=== PATIENT | male | born 1995 | race Two or more races ===

== ENCOUNTER 2020-09-29 20:00 | Emergency (ER) | payer SELFPAY ==
[~2020-09-29] VITALS: Ht 185.4 cm; Wt 82.7 kg
[2020-09-29 21:30] LABS: ANION GAP 10 mmol/L (8-16); CALCIUM, TOTAL 9.5 mg/dL (8.8-10.5); CARBON DIOXIDE 28 mmol/L (22-29); CHLORIDE 99 mmol/L (98-107); CREATININE 0.86 mg/dL (0.60-1.30); GLOMERULAR FILTR. RATE CALC > 60 mL/min (>60); GLUCOSE,RANDOM 130 mg/dL (70-110); HEMATOCRIT 42.9 % (41-53); HEMOGLOBIN 14.3 g/dL (13.5-17.5); MEAN CORPUSCULAR HEMOGLOBIN 29.4 pg (26.0-34.0); MEAN CORPUSCULAR HGB CONC 33.3 G/dL (31.0-37.0); MEAN CORPUSCULAR VOLUME 88 fL (80-100); PLATELET COUNT (AUTO) 324 K/uL (150-450); POTASSIUM 3.8 mmol/L (3.5-5.1); RED BLOOD CELL COUNT(AUTO) 4.86 MIL/uL (4.50-5.90); RED CELL DISTRIBUTION WIDTH 13.4 % (11.5-14.5); SODIUM SERUM 137 mmol/L (136-145); UREA NITROGEN, BLOOD 13 mg/dL (7-18)
[2020-09-29 21:36] LABS: ALANINE AMINOTRANSFERASE 52 U/L (12-78); ALBUMIN 3.6 g/dL (3.4-5.0); ALKALINE PHOSPHATASE 72 U/L (46-116); ASPARTATE AMINOTRANSFERASE 40 U/L (15-37); BILIRUBIN,TOTAL 0.4 mg/dL (0.1-1.0); LIPASE 63 U/L (73-393); TOTAL PROTEIN, SERUM 8.4 g/dL (6.4-8.2)
[2020-09-29 22:10] LABS: BAND NEUTROPHILS % (MANUAL) 0 % (0-5); LYMPHOCYTES % (MANUAL) 7 % (22-44); MONOCYTES % (MANUAL) 3 % (2-9); SEGMENTED NEUTROPHILS % 90 % (40-70)
[2020-09-29] MEDS ORDERED: PB/HYOSCY/ATR/SCOP/LIDO/MAALOX 55 ML BOTTLE PO ONE (22:45)
[2020-09-29] MEDS ORDERED: FAMOTIDINE 20 MG TABLET PO ONE (22:45)
[2020-09-29 23:25] VITALS: BP 145/89
== END 2020-09-29 23:29 | disposition home or self-care (01) ==
LOC: EMS 20:03
DX: R10.13 Epigastric pain (principal); F19.10 Other psychoactive substance abuse, uncomplicated; F17.210 Nicotine dependence, cigarettes, uncomplicated; Z88.6 Allergy status to analgesic agent
CPT/HCPCS: 99283

== ENCOUNTER 2023-06-29 10:49 | Emergency (ER) | payer OTHER ==
[~2023-06-29] VITALS: Ht 182.9 cm; Wt 81.8 kg
[2023-06-29 10:54] VITALS: BP 125/77; PULSE 88; RESP 20; TEMP 98.8
[2023-06-29 11:26] LABS: ALCOHOL, URINE DRUG SCREEN NEGATIVE (NEGATIVE); AMPHET/METH SCREEN,URINE NEGATIVE (NEGATIVE); BARBITURATE SCREEN, URINE NEGATIVE (NEGATIVE); BENZODIAZEPINES SCREEN,URINE NEGATIVE (NEGATIVE); CANNABINOID SCREEN,URINE POSITIVE (NEGATIVE); COCAINE SCREEN,URINE POSITIVE (NEGATIVE); METHADONE SCREEN, URINE NEGATIVE (NEGATIVE); OPIATE SCREEN,URINE NEGATIVE (NEGATIVE); PHENCYCLIDINE SCREEN,URINE NEGATIVE (NEGATIVE)
== END 2023-06-29 12:24 | disposition home or self-care (01) ==
LOC: EMS 10:58
DX: E86.0 Dehydration (principal); F17.210 Nicotine dependence, cigarettes, uncomplicated; F15.90 Other stimulant use, unspecified, uncomplicated; Z88.8 Allergy status to other drugs, medicaments and biological substances
CPT/HCPCS: 80307; 99283

== ENCOUNTER 2023-08-06 13:11 | Emergency (ER) | payer OTHER ==
[~2023-08-06] VITALS: Ht 184.2 cm; Wt 81.8 kg
[2023-08-06 13:16] VITALS: TEMP 97.9
[2023-08-06 13:25] VITALS: BP 117/72; PULSE 78; RESP 16
[2023-08-06] MEDS ORDERED: OFLO5DRO49 OS (15:14)
== END 2023-08-06 16:09 | disposition home or self-care (01) ==
LOC: EMS 13:12
DX: H10.32 Unspecified acute conjunctivitis, left eye (principal); Z90.49 Acquired absence of other specified parts of digestive tract; Z88.8 Allergy status to other drugs, medicaments and biological substances
CPT/HCPCS: 99283; Z7502

== ENCOUNTER 2024-05-14 00:22 | Emergency (ER) | payer OTHER ==
[~2024-05-14] VITALS: Ht 182.9 cm; Wt 81.8 kg
[~2024-05-14 00:22] MED LIST: OFLO5DRO49 OS
[2024-05-14 00:28] VITALS: BP 109/57; PULSE 98; RESP 16; TEMP 98; O2SAT 96
== END 2024-05-14 01:30 | disposition left against medical advice (07) ==
LOC: EMS 00:23
DX: F10.129 Alcohol abuse with intoxication, unspecified (principal); Z53.21 Procedure and treatment not carried out due to patient leaving prior to being seen by health care provider

== ENCOUNTER 2024-06-16 10:19 | Emergency (ER) | payer OTHER ==
[~2024-06-16] VITALS: Ht 183.5 cm; Wt 81.8 kg
[2024-06-16 11:12] LABS: APPEARANCE,URINE CLEAR (CLEAR); BILIRUBIN,URINE NEGATIVE (NEGATIVE); COLOR,URINE LIGHT YELLOW (YELLOW); GLUCOSE, URINE (UA) NEGATIVE (NEGATIVE); KETONES,URINE NEGATIVE (NEGATIVE); LEUKOCYTE ESTERASE ,URINE NEGATIVE (NEGATIVE); NITRATE,URINE NEGATIVE (NEGATIVE); OCCULT BLOOD,URINE NEGATIVE (NEGATIVE); PH,URINE 6.5 (5.0-8.0); PROTEIN,URINE NEGATIVE (NEGATIVE); SPECIFIC GRAVITIY, URINE 1.027 (1.003-1.030); UROBILINOGEN,URINE <=1.0 mg/dL (<=1.0)
[2024-06-16 12:48] LABS: BASOPHILS % (AUTO) 0.7 % (0.0-2.0); EOSINOPHILS % (AUTO) 1.6 % (1.0-6.0); HEMATOCRIT 40.9 % (41-53); HEMOGLOBIN 13.6 g/dL (13.5-17.5); LYMPHOCYTES # (AUTO) 1.5 K/uL (1.0-4.8); LYMPHOCYTES % (AUTO) 29.5 % (22.0-44.0); MEAN CORPUSCULAR HEMOGLOBIN 30.6 pg (26.0-34.0); MEAN CORPUSCULAR HGB CONC 33.3 G/dL (31.0-37.0); MEAN CORPUSCULAR VOLUME 92 fL (80-100); MONOCYTES # (AUTO) 0.5 K/uL (0.1-1.0); NEUTROPHILS % (AUTO) 59.2 % (40.0-70.0); PLATELET COUNT (AUTO) 228 K/uL (150-450); RED BLOOD CELL COUNT(AUTO) 4.46 MIL/uL (4.50-5.90); RED CELL DISTRIBUTION WIDTH 13.4 % (11.5-14.5); WHITE BLOOD COUNT (AUTO) 5.2 K/uL (4.5-11.0)
[2024-06-16 13:08] LABS: ANION GAP 8 mmol/L (8-16); CALCIUM, TOTAL 8.2 mg/dL (8.8-10.5); CARBON DIOXIDE 28 mmol/L (22-29); CHLORIDE 103 mmol/L (98-107); CREATININE 0.81 mg/dL (0.60-1.30); GLOMERULAR FILTR. RATE CALC > 60 mL/min (>60); GLUCOSE,RANDOM 90 mg/dL (70-110); POTASSIUM 3.5 mmol/L (3.5-5.1); SODIUM SERUM 139 mmol/L (136-145); UREA NITROGEN, BLOOD 15 mg/dL (7-18)
[2024-06-16 13:11] LABS: ALANINE AMINOTRANSFERASE 21 U/L (12-78); ALBUMIN 3.5 g/dL (3.4-5.0); ALKALINE PHOSPHATASE 49 U/L (46-116); ASPARTATE AMINOTRANSFERASE 23 U/L (15-37); BILIRUBIN,TOTAL 0.3 mg/dL (0.1-1.0); TOTAL PROTEIN, SERUM 6.9 g/dL (6.4-8.2)
[2024-06-16 13:29] VITALS: TEMP 97.8
[2024-06-16 13:30] VITALS: BP 130/80; PULSE 70; RESP 16; O2SAT 97
[2024-06-16] MEDS: CefTRIAXone SODIUM 1 GM/VIAL IM ONE (13:37)
[2024-06-16] MEDS: LIDOCAINE/PF 1% 2 ML VIAL IM ONE (13:37)
[2024-06-16] MEDS: AZITHROMYCIN 500 MG TABLET PO ONE (13:37)
== END 2024-06-16 13:50 | disposition home or self-care (01) ==
LOC: EMS 10:29
DX: N34.2 Other urethritis (principal); F12.90 Cannabis use, unspecified, uncomplicated; Z90.49 Acquired absence of other specified parts of digestive tract
CPT/HCPCS: 99285; 74176; 80053; 81003; 85025; 36415; 87491; 87591; 96372; J0456; J0696; J3490

== ENCOUNTER 2024-10-14 22:59 | Emergency (ER) | payer OTHER ==
[~2024-10-14] VITALS: Ht 182.9 cm; Wt 82.7 kg
[2024-10-14 23:15] VITALS: BP 124/67; PULSE 85; RESP 16; TEMP 97.8; O2SAT 98
[2024-10-14] MEDS ORDERED: AMOX-457 PO (23:20)
[2024-10-15] MEDS: CEPHALEXIN MONOHYDRATE 500 MG CAPSULE PO ONE (00:31)
[2024-10-15] MEDS: SULFAMETHOX/TRIMETH DS 800-160 MG/TABLET PO ONE (00:32)
[2024-10-15] MEDS ORDERED: SULF-261 PO (01:17)
[2024-10-15] MEDS ORDERED: CEPH-558 PO (01:17)
== END 2024-10-15 00:42 | disposition home or self-care (01) ==
LOC: EMS 22:59
DX: L03.115 Cellulitis of right lower limb (principal); F12.90 Cannabis use, unspecified, uncomplicated; Z90.49 Acquired absence of other specified parts of digestive tract
CPT/HCPCS: 99284; Z7502; Z7610

== ENCOUNTER 2024-12-04 18:04 | Emergency (ER) | payer OTHER ==
[~2024-12-04] VITALS: Ht 182.9 cm; Wt 81.0 kg
[~2024-12-04 18:04] MED LIST changes: +AMOX-457 PO; +CEPH-558 PO; -OFLO5DRO49 OS; +SULF-261 PO
[2024-12-04 18:40] VITALS: BP 111/78; PULSE 73; RESP 18; TEMP 97.9; O2SAT 99
[2024-12-04 19:26] LABS: GLUCOMETER DEV NAME(LOC) ERT.6; GLUCOSE,POINT OF CARE 84 MG/DL (70-110)
[2024-12-04] MEDS: CEPHALEXIN MONOHYDRATE 500 MG CAPSULE PO ONE (19:51)
[2024-12-04] MEDS: PERMETHRIN 5% 60 GM CREAM TP ONE (19:51)
[2024-12-04] MEDS: SULFAMETHOX/TRIMETH DS 800-160 MG/TABLET PO ONE (19:51)
== END 2024-12-04 20:00 | disposition home or self-care (01) ==
LOC: EMS 18:04
DX: S91.302A Unspecified open wound, left foot, initial encounter (principal); B86 Scabies; F12.90 Cannabis use, unspecified, uncomplicated; Z90.49 Acquired absence of other specified parts of digestive tract; Z88.8 Allergy status to other drugs, medicaments and biological substances; X58.XXXA Exposure to other specified factors, initial encounter; Y93.89 Activity, other specified; Y92.89 Other specified places as the place of occurrence of the external cause; Y99.8 Other external cause status
CPT/HCPCS: 82962; 99284

== ENCOUNTER 2024-12-09 10:29 | Emergency (ER) | payer OTHER ==
[~2024-12-09] VITALS: Ht 170.2 cm; Wt 72.7 kg
[2024-12-09 10:44] VITALS: BP 129/82; PULSE 90; RESP 18; TEMP 97.1; O2SAT 96
== END 2024-12-09 12:35 | disposition home or self-care (01) ==
LOC: EMS 10:30
DX: L08.9 Local infection of the skin and subcutaneous tissue, unspecified (principal); F12.90 Cannabis use, unspecified, uncomplicated; Z88.8 Allergy status to other drugs, medicaments and biological substances; Z90.49 Acquired absence of other specified parts of digestive tract
CPT/HCPCS: 99281; Z7502

== ENCOUNTER 2025-03-31 08:51 | Emergency (ER) | payer OTHER ==
[~2025-03-31] VITALS: Ht 182.9 cm; Wt 77.0 kg
[2025-03-31 08:59] VITALS: TEMP 97.2
[2025-03-31] MEDS: CEPHALEXIN MONOHYDRATE 500 MG CAPSULE PO ONE (09:17)
[2025-03-31] MEDS: SULFAMETHOX/TRIMETH DS 800-160 MG/TABLET PO ONE (09:17)
[2025-03-31 09:58] VITALS: BP 112/65; PULSE 75; RESP 18; O2SAT 99
== END 2025-03-31 09:59 | disposition home or self-care (01) ==
LOC: EMS 09:02
DX: L03.114 Cellulitis of left upper limb (principal); F12.90 Cannabis use, unspecified, uncomplicated; Z90.49 Acquired absence of other specified parts of digestive tract; Z88.8 Allergy status to other drugs, medicaments and biological substances
CPT/HCPCS: 99284; Z7502; Z7610

== ENCOUNTER 2025-05-06 11:50 | Emergency (ER) | payer OTHER ==
[2025-05-06 12:17] VITALS: TEMP 98.2
[2025-05-06] MEDS ORDERED: IBUP-45 PO (12:22)
[2025-05-06 14:05] LABS: PLATELET COUNT (AUTO) 286 K/uL (150-450); RED BLOOD CELL COUNT(AUTO) 4.34 MIL/uL (4.50-5.90); RED CELL DISTRIBUTION WIDTH 13.4 % (11.5-14.5); WHITE BLOOD COUNT (AUTO) 5.7 K/uL (4.5-11.0)
[2025-05-06 14:12] LABS: CALCIUM, TOTAL 8.7 mg/dL (8.8-10.5); CREATININE 0.75 mg/dL (0.60-1.30); GLOMERULAR FILTR. RATE CALC > 60 mL/min (>60); GLUCOSE,RANDOM 94 mg/dL (70-110); SODIUM SERUM 137 mmol/L (136-145); UREA NITROGEN, BLOOD 16 mg/dL (7-18)
[2025-05-06] MEDS: CEPHALEXIN MONOHYDRATE 500 MG CAPSULE PO ONE (15:15)
[2025-05-06] MEDS ORDERED: CEPH-558 PO (15:47)
[2025-05-06] MEDS ORDERED: IBUP-1492 PO (15:47)
[2025-05-06 16:36] VITALS: BP 121/74; PULSE 74; RESP 18; O2SAT 99
== END 2025-05-06 16:42 | disposition home or self-care (01) ==
LOC: EMS 11:59
DX: K13.0 Diseases of lips (principal); R22.9 Localized swelling, mass and lump, unspecified; F12.90 Cannabis use, unspecified, uncomplicated; Z90.49 Acquired absence of other specified parts of digestive tract; Z79.899 Other long term (current) drug therapy; Z88.8 Allergy status to other drugs, medicaments and biological substances
CPT/HCPCS: 80048; 85025; 99283